=== PATIENT | female | born 1955 | race African-American/Black ===

== ENCOUNTER 2017-11-09 12:30 | Inpatient (IN) | payer SELFPAY ==
[2017-11-09] MEDS ORDERED: NORMAL SALINE 1000 ML 1,000 ML IV ONE (14:38)
[2017-11-09] MEDS ORDERED: METOCLOPRAMIDE HCL INJ/PF 10 MG/2 ML SDV IV ONE (14:39)
--- NOTE | 2017-11-09 14:54 | ER Document Report ---
ED Medical Screen (RME) - General Chief Complaint: Abdominal Pain Stated Complaint: ABDOMINAL PAIN, VOMITING Time Seen by Provider: 11/09/17 14:33 Notes: Patient is a 62-year-old female who presents to the emergency department today with complaints of abdominal pain, vomiting, and generalized weakness for the last 3 days. Patient admits to being an alcoholic, stating she drinks every day. Patient states that she has a history of pancreatitis and her symptoms today feel like her pancreatitis in the past. I have greeted and performed a rapid initial assessment of this patient. A comprehensive ED assessment and evaluation of the patient, analysis of test results, and completion of the medical decision making process will be conducted by additional ED providers. Review of systems: Positive for abdominal pain, vomiting, and generalized weakness. Negative for black or red stool/vomit, abdominal surgeries, or chest pain. Physical Exam: General: Alert, appears well. HEENT: Normocephalic. Atraumatic. PERRLA. Extraocular movements intact. Oropharynx clear. Neck: Supple. Respiratory: No respiratory distress. Abdominal: Left upper quadrant and epigastric abdominal tenderness with palpation. No distension. Extremities: Moves all four extremities. Neurological: Normal cognition. AAOx4. Normal speech. Psychological: Normal affect. Normal Mood. Skin: Warm. Dry. Normal color. TRAVEL OUTSIDE OF THE [place] IN LAST 30 DAYS: No - Related Data Allergies/Adverse Reactions: No Known Allergies Allergy (Verified 11/09/17 12:32) Past Medical History - Social History Chew tobacco use (# tins/day): - 5 Drug Abuse: None - Past Medical History Cardiac Medical History: Reports: Hx Hypertension Renal/ Medical History: Denies: Hx Peritoneal Dialysis Past Surgical History: Reports: Hx Section - x2, Hx Orthopedic Surgery - Right foot sx Physical Exam - Vital signs Vitals: Temp Pulse Resp BP Pulse Ox 99.2 F 133 H 18 153/80 H 99 11/09/17 12:37 11/09/17 12:37 11/09/17 12:37 11/09/17 12:37 11/09/17 12:37 Course - Vital Signs Vital signs: Temp Pulse Resp BP Pulse Ox 99.2 F 133 H 18 153/80 H 99 11/09/17 12:37 11/09/17 12:37 11/09/17 12:37 11/09/17 12:37 11/09/17 12:37 Scribe Documentation - Scribe Written by Mary:: Mary Davis, 11/09/2017 1454 acting as scribe for :: Carrillo
[2017-11-09 15:37] LABS: ABSOLUTE LYMPHOCYTES (AUTO) 0.7 10^3/uL (0.5-4.7); ABSOLUTE MONOCYTES (AUTO) 0.4 10^3/uL (0.1-1.4); ABSOLUTE NEUT (AUTO) 5.7 10^3/uL (1.7-8.2); BASOPHILS % (AUTO) 0.5 % (0-2); EOSINOPHILS % (AUTO) 0.2 % (0-6); HEMATOCRIT 39.7 % (36.0-47.0); HEMOGLOBIN 13.5 g/dL (12.0-15.5); LYMPHOCYTES % (AUTO) 10.6 % (13-45); MEAN CORPUSCULAR HEMOGLOBIN 33.9 pg (27.0-33.4); MEAN CORPUSCULAR HGB CONC 34.1 g/dL (32.0-36.0); MEAN CORPUSCULAR VOLUME 99 fl (80-97); MONOCYTES % (AUTO) 5.9 % (3-13); PLATELET COUNT 211 10^3/uL (150-450); RED CELL DISTRIBUTION WIDTH 15.6 % (11.5-14.0); SEGMENTED NEUTROPHILS % (AUTO) 82.8 % (42-78); TOTAL CELLS COUNTED % (AUTO) 100 %; WHITE BLOOD COUNT 6.8 10^3/uL (4.0-10.5)
[2017-11-09 15:59] LABS: APPEARANCE,URINE SLIGHTLY-CLOUDY; BILIRUBIN,URINE MODERATE (NEGATIVE); COLOR,URINE AMBER; GLUCOSE, URINE NEGATIVE (NEGATIVE); KETONES,URINE 80 mg/dL (NEGATIVE); LEUKOCYTE ESTERASE,URINE NEGATIVE (NEGATIVE); NITRITE,URINE NEGATIVE (NEGATIVE); PROTEIN,URINE 100 mg/dL (NEGATIVE); URINE SPECIFIC GRAVITY 1.024
[2017-11-09 16:03] LABS: ALANINE AMINOTRANSFERASE 23 U/L (9-52); ALBUMIN 4.6 g/dL (3.5-5.0); ALKALINE PHOSPHATASE 133 U/L (38-126); ASPARTATE AMINO TRANSFERASE 51 U/L (14-36); BILIRUBIN,DIRECT 0.9 mg/dL (0.0-0.4); BILIRUBIN,TOTAL 1.7 mg/dL (0.2-1.3); BLOOD UREA NITROGEN 15 mg/dL (7-20); CALCIUM 11.1 mg/dL (8.4-10.2); GLUCOSE 167 mg/dL (75-110); POTASSIUM 3.8 mmol/L (3.6-5.0)
[2017-11-09 16:08] LABS: CARBON DIOXIDE 20 mmol/L (22-30); CHLORIDE 103 mmol/L (98-107); SODIUM 142.5 mmol/L (137-145)
[2017-11-09 16:10] LABS: ANION GAP 19 (5-19); LIPASE 3117.5 U/L (23-300)
--- NOTE | 2017-11-09 16:42 | ER Document Report ---
ED General - General Chief Complaint: Abdominal Pain Stated Complaint: ABDOMINAL PAIN, VOMITING Time Seen by Provider: 11/09/17 14:33 Mode of Arrival: Ambulatory Information source: Patient Notes: This is a 62-year-old female with a history of alcoholic pancreatitis (last episode in 2012) who presents to the emergency room with nausea, vomiting and abdominal pain consistent with prior episode of pancreatitis. Patient does states she regularly drinks alcohol. She denies any past history of gallbladder disease. TRAVEL OUTSIDE OF THE [place] IN LAST 30 DAYS: No - HPI Onset: Last week Onset/Duration: Gradual Quality of pain: Dull Severity: Moderate Pain Level: 4 Associated symptoms: denies: Chest pain, Fever, Shortness of breath Exacerbated by: Movement, Food Relieved by: Denies Similar symptoms previously: Yes Recently seen / treated by doctor: No - Related Data Allergies/Adverse Reactions: No Known Allergies Allergy (Verified 11/09/17 12:32) Past Medical History - General Information source: Patient - Social History Smoking Status: Current Some Day Smoker Cigarette use (# per day): Yes - Half pack per day Chew tobacco use (# tins/day): No - 5 Frequency of alcohol use: None Drug Abuse: None Lives with: Family Family History: None Patient has suicidal ideation: No Patient has homicidal ideation: No - Past Medical History Cardiac Medical History: Reports: Hx Hypertension Renal/ Medical History: Denies: Hx Peritoneal Dialysis Past Surgical History: Reports: Hx Section - x2, Hx Orthopedic Surgery - Right foot sx Review of Systems - Review of Systems Constitutional: denies: Chills, Fever EENT: No symptoms reported Cardiovascular: No symptoms reported Respiratory: No symptoms reported Gastrointestinal: See HPI Genitourinary: No symptoms reported Female Genitourinary: No symptoms reported Musculoskeletal: No symptoms reported Skin: No symptoms reported Hematologic/Lymphatic: No symptoms reported Neurological/Psychological: No symptoms reported Physical Exam - Vital signs Vitals: Temp Pulse Resp BP Pulse Ox 99.2 F 133 H 18 153/80 H 99 11/09/17 12:37 11/09/17 12:37 11/09/17 12:37 11/09/17 12:37 11/09/17 12:37 Notes: Physical exam: GENERAL: 62-year-old female, alert and oriented 3 HEAD: Atraumatic, normocephalic. EYES: Pupils equal round and reactive to light, extraocular movements intact, sclera anicteric, conjunctiva are normal. ENT: TMs normal, nares patent, oropharynx clear without exudates. Moist mucous membranes. NECK: Normal range of motion, supple without obvious mass or JVD. LUNGS: Breath sounds clear to auscultation bilaterally and equal. No wheezes rales or rhonchi. HEART: Regular rate and rhythm without murmurs, rubs or gallops. ABDOMEN: Soft, normoactive bowel sounds. No tenderness to palpation. No guarding, no rebound. No masses appreciated. EXTREMITIES: Normal range of motion, no pitting or edema. No clubbing or cyanosis. NEUROLOGICAL: Cranial nerves II through XII grossly intact. Normal speech, moving all extremities. PSYCH: Normal mood, normal affect. SKIN: Warm, Dry, normal turgor, no rashes or lesions noted. Course - Vital Signs Vital signs: Temp Pulse Resp BP Pulse Ox 99.2 F 133 H 18 153/80 H 99 11/09/17 12:37 11/09/17 12:37 11/09/17 12:37 11/09/17 12:37 11/09/17 12:37 - Laboratory Result Diagrams: 11/09/17 15:20 11/09/17 15:20 Laboratory results interpreted by me: 11/09/17 11/09/17 11/09/17 14:45 15:20 15:20 MCV 99 H MCH 33.9 H RDW 15.6 H Seg Neutrophils % 82.8 H Lymphocytes % 10.6 L Carbon Dioxide 20 L Creatinine 0.50 L Glucose 167 H Calcium 11.1 H Total Bilirubin 1.7 H Direct Bilirubin 0.9 H AST 51 H Alkaline Phosphatase 133 H Lipase 3117.5 H Urine Protein 100 H Urine Ketones 80 H Urine Bilirubin MODERATE H Urine Urobilinogen 4.0 H - Diagnostic Test Radiology reviewed: Image reviewed, Reports reviewed - The the abdomen shows no acute intra-abdominal process Discharge - Discharge Clinical Impression: Alcoholic pancreatitis Condition: Stable Disposition: ADMITTED INPATIENT Admitting Provider: Hospitalist - Dr Mark/[facility] Unit Admitted: Telemetry
--- NOTE | 2017-11-09 17:03 | RADIOLOGY REPORT (SQ) ---
EXAM DESCRIPTION: CT ABD/PELVIS WITH IV ONLY COMPLETED DATE/TIME: 11/09/2017 4:42 pm REASON FOR STUDY: abd pain COMPARISON: None. TECHNIQUE: CT scan of the abdomen and pelvis performed using helical scanning technique with dynamic intravenous contrast injection. No oral contrast. Images reviewed with lung, soft tissue, and bone windows. Reconstructed coronal and sagittal MPR images reviewed. Delayed images for evaluation of the urinary system also acquired. All images stored on PACS. All CT scanners at this facility use dose modulation, iterative reconstruction, and/or weight based d osing when appropriate to reduce radiation dose to as low as reasonably achievable (ALARA). [facility]: Dose Right [facility]: CareDose [facility]: Dose Right [facility]: Teradose 4D [facility]: PerSay CONTRAST TYPE AND DOSE: contrast/concentration: Isovue 370.00 mg/ml; Total Contrast Delivered: 74.0 ml; Total Saline Delivered: 30.0 ml 74 mL Isovue 370- low osmolar. RENAL FUNCTION: Creatinine 0.5 RADIATION DOSE: CT Rad equipment meets quality standard of care and radiation dose reduction techniq ues were employed. CTDIvol: 4.8 mGy. DLP: 417 mGy-cm.. LIMITATIONS: None. FINDINGS: LOWER CHEST: No significant findings. No nodules or infiltrates. LIVER: Scattered hepatic cysts. Largest 2.7 Cm. No solid masses. No ductal dilatation. SPLEEN: Normal size. No focal lesions. PANCREAS: No masses. No significant calcifications. No adjacent inflammation or peripancreatic fluid collections. Pancreatic duct not dilated. GALLBLADDER: No identified stones by CT criteria. No inflammatory changes to suggest cholecystitis. ADRENAL GLANDS: No significant masses or asymmetry. RIGHT KIDNEY AND URETER: No solid masses. No significant calcifications. No hydronephrosis or hyd roureter. LEFT KIDNEY AND URETER: No solid masses. No significant calcifications. No hydronephrosis or hydr oureter. AORTA AND VESSELS: No aneurysm. No dissection. Renal arteries, SMA, celiac without stenosis. RETROPERITONEUM: No retroperitoneal adenopathy, hemorrhage or masses. BOWEL AND PERITONEAL CAVITY: No masses or inflammatory changes. No free fluid or peritoneal masses. Moderate gaseous distention of small bowel without air-fluid levels. APPENDIX: Normal. PELVIS: Large 8 cm fundal uterine fibroid ABDOMINAL WALL: No masses. No hernias. BONES: No significant or acute findings. OTHER: No other significant finding. IMPRESSION: Nonspecific small bowel ileus. No acute or significant pathology to explain the patient 's clinical symptoms. Incidental findings of hepatic cyst and large uterine fundal fibroid. TECHNICAL DOCUMENTATION: JOB ID: [id number] Quality ID # [id number]: Final reports with documentation of one or more dose reduction techniques (e.g., Au tomated exposure control, adjustment of the mA and/or kV according to patient size, use of iterative reconstruction technique) 2010 [email or web address]- All Rights Reserved Reading location - IP/workstation name: [email or web address]
[2017-11-09] MEDS ORDERED: ONDANSETRON HCL INJ/PF 4 MG/2 ML SDV IV PRN (18:00)
[2017-11-09] MEDS ORDERED: FENTANYL CITRATE INJ/PF 100 MCG/2 ML AMPUL IV PRN (18:11)
[2017-11-09] MEDS ORDERED: LORAZEPAM INJ 2 MG/1 ML VIAL IV PRN (19:07)
--- NOTE | 2017-11-09 19:07 | PDOC H&P ---
History of Present Illness Admission Date/PCP: 11/09/17 18:27 Patient complains of: Abdominal pain and nausea History of Present Illness: GWEN BELCHER is a 62 year old female with past medical history of essential hypertension, vitamin B12 deficiency and daily alcohol use; she presents to [facility] emergency department this evening complaining of epigastric pain and nausea. She has had a history of alcohol induced pancreatitis, last in 2012. She states she began having mild to moderate epigastric pain yesterday afternoon. It was associated with some nausea, but no vomiting. The pain is increased in intensity as today's going on. Diarrhea or change in bowel habits. She denies any fevers associated with the pain. Presently is pain-free and resting comfortably. She denies any nausea at the present time. Past Medical History Cardiac Medical History: Reports: Hypertension Pulmonary Medical History: Reports: None EENT Medical History: Reports: None Neurological Medical History: Reports: None Endocrine Medical History: Reports: None Renal/ Medical History: Reports: None Malignancy Medical History: Reports: None GI Medical History: Reports: None Skin Medical History: Reports: None Psychiatric Medical History: Reports: Alcohol Dependency, Tobacco Dependency Traumatic Medical History: Reports: None Hematology: Reports: None Infectious Medical History: Reports: None Past Surgical History Past Surgical History: Reports: Section - x2, Orthopedic Surgery - Right foot sx Social History Information Source: Patient Lives with: Family Smoking Status: Current Some Day Smoker Number of Years Smokin Last Time Smoked: 11/08/17 Frequency of Alcohol Use: Heavy - She drinks between 2-3 vodkas and cardenas per day. Last Alcohol Use: 11/08/17 Hx Recreational Drug Use: No - Advance Directive Resuscitation Status: Full Code Surrogate healthcare decision maker:: Family History Family History: Hypertension Parental Family History Reviewed: Yes Children Family History Reviewed: Yes Sibling(s) Family History Reviewed.: Yes Medication/Allergy Home Medications: Cyanocobalamin (Vitamin B-12) [Vitamin B12] 1 tab PO DAILY 11/09/17 Metoprolol Tartrate 1 tab PO BID 11/09/17 Allergies/Adverse Reactions: No Known Allergies Allergy (Verified 11/09/17 12:32) Review of Systems Constitutional: PRESENT: chills Eyes: ABSENT: visual disturbances Ears: ABSENT: hearing changes Respiratory: PRESENT: as per HPI Gastrointestinal: PRESENT: abdominal pain, heartburn, nausea Genitourinary: ABSENT: dysuria, hematuria Musculoskeletal: ABSENT: joint swelling Neurological: ABSENT: abnormal gait, abnormal speech, confusion, dizziness, focal weakness, syncope Psychiatric: ABSENT: anxiety, depression, homidical ideation, suicidal ideation Endocrine: ABSENT: cold intolerance, heat intolerance, polydipsia, polyuria Hematologic/Lymphatic: ABSENT: easy bleeding, easy bruising Physical Exam Vital Signs: Temp Pulse Resp BP Pulse Ox 99.2 F 133 H 18 153/80 H 99 11/09/17 12:37 11/09/17 12:37 11/09/17 12:37 11/09/17 12:37 11/09/17 12:37 General appearance: PRESENT: no acute distress, thin, well-developed Head exam: PRESENT: atraumatic, normocephalic Eye exam: PRESENT: conjunctiva pink, EOMI, PERRLA. ABSENT: scleral icterus Ear exam: PRESENT: normal external ear exam Mouth exam: PRESENT: moist, tongue midline Neck exam: ABSENT: carotid bruit, JVD, lymphadenopathy, thyromegaly Respiratory exam: PRESENT: clear to auscultation maribel. ABSENT: rales, rhonchi, wheezes Cardiovascular exam: PRESENT: RRR. ABSENT: diastolic murmur, rubs, systolic murmur Pulses: PRESENT: normal dorsalis pedis pul Vascular exam: PRESENT: normal capillary refill GI/Abdominal exam: PRESENT: soft Rectal exam: PRESENT: deferred Extremities exam: PRESENT: full ROM. ABSENT: calf tenderness, clubbing, pedal edema Neurological exam: PRESENT: alert, awake, oriented to person, oriented to place , oriented to time, oriented to situation, CN II-XII grossly intact. ABSENT: motor sensory deficit Psychiatric exam: PRESENT: appropriate affect, normal mood. ABSENT: homicidal ideation, suicidal ideation Skin exam: PRESENT: dry, intact, warm. ABSENT: cyanosis, rash Results Impressions: Abdomen/Pelvis CT 11/09/17 14:37 IMPRESSION: Nonspecific small bowel ileus. No acute or significant pathology to explain the patient's clinical symptoms. Incidental findings of hepatic cyst and large uterine fundal fibroid. Assessment & Plan - Diagnosis (1) Alcoholic pancreatitis Qualifiers: Chronicity: acute Is this a current diagnosis for this admission?: Yes Plan: Lipase is 3100. CT abdomen pelvis is no abnormality. Will make n.p.o. except for ice chips and IV hydrate. She has had recurrent alcoholic pancreatitis. LAst in 2012 (2) Essential hypertension Is this a current diagnosis for this admission?: Yes Plan: Normotensive (3) Alcohol abuse Is this a current diagnosis for this admission?: Yes Plan: Valium 2 mg q6h, Ativan prn. Start thiamine, folic acid when she can take p.o.. She has never had DTs. States she does occasionally get a little tremulous. (4) Tobacco abuse Is this a current diagnosis for this admission?: Yes Plan: She smokes 5 cigarillos every 2 days. Counseled has no plans to stop (5) Protein-calorie malnutrition, severe Is this a current diagnosis for this admission?: Yes Plan: BMI is 15.1 She is npo now. She states she has always been thin - Time Time Spent: 50 to 70 Minutes Critical Time spent with patient: 25-34 minutes Smoking Cessation Education: 3 to 10 minutes Medications reviewed and adjusted accordingly: Yes Anticipated discharge: Home
[2017-11-09] MEDS ORDERED: ENOXAPARIN SODIUM INJ 40 MG/0.4 ML DISP.SYRIN SUBCUT ONE (20:00)
[2017-11-09] MEDS: NORMAL SALINE 1000 ML 1,000 ML IV PRN (20:20)
[2017-11-09] MEDS: FAMOTIDINE INJ/PF 20 MG/2 ML SDV IV SCH (22:47)
[2017-11-09] MEDS: METOPROLOL TARTRATE 50 MG TABLET PO SCH (22:47)
--- NOTE | 2017-11-09 22:54 | EKG REPORT ---
SEVERITY:- ABNORMAL ECG - SINUS TACHYCARDIA PROBABLE LEFT ATRIAL ABNORMALITY LVH WITH SECONDARY REPOLARIZATION ABNORMALITY : Confirmed by: Liv Vale 09-Nov-2017 22:53:36
[2017-11-09] MEDS: DIAZEPAM 2 MG TABLET PO SCH (23:48)
[2017-11-10] MEDS: DIAZEPAM 2 MG TABLET PO SCH ×3 (06:19→19:40)
[2017-11-10] MEDS ORDERED: FENTANYL CITRATE INJ/PF 100 MCG/2 ML AMPUL IV PRN (06:30)
[2017-11-10 06:49] LABS: ABSOLUTE EOSINOPHILS # (AUTO) 0.1 10^3/uL (0.0-0.6); ABSOLUTE MONOCYTES (AUTO) 0.5 10^3/uL (0.1-1.4); ABSOLUTE NEUT (AUTO) 4.1 10^3/uL (1.7-8.2); BASOPHILS % (AUTO) 0.3 % (0-2); EOSINOPHILS % (AUTO) 1.1 % (0-6); HEMATOCRIT 31.2 % (36.0-47.0); MEAN CORPUSCULAR HEMOGLOBIN 34.2 pg (27.0-33.4); MEAN CORPUSCULAR HGB CONC 34.3 g/dL (32.0-36.0); MEAN CORPUSCULAR VOLUME 100 fl (80-97); MONOCYTES % (AUTO) 8.8 % (3-13); PLATELET COUNT 165 10^3/uL (150-450); RED BLOOD COUNT 3.14 10^6/uL (3.72-5.28); RED CELL DISTRIBUTION WIDTH 15.6 % (11.5-14.0); SEGMENTED NEUTROPHILS % (AUTO) 72.8 % (42-78); TOTAL CELLS COUNTED % (AUTO) 100 %; WHITE BLOOD COUNT 5.7 10^3/uL (4.0-10.5)
[2017-11-10 06:51] LABS: ALANINE AMINOTRANSFERASE 19 U/L (9-52); ALKALINE PHOSPHATASE 91 U/L (38-126); ANION GAP 9 (5-19); ASPARTATE AMINO TRANSFERASE 43 U/L (14-36); BILIRUBIN,DIRECT 0.6 mg/dL (0.0-0.4); BILIRUBIN,TOTAL 1.1 mg/dL (0.2-1.3); BLOOD UREA NITROGEN 7 mg/dL (7-20); CALCIUM 9.1 mg/dL (8.4-10.2); CARBON DIOXIDE 21 mmol/L (22-30); CHLORIDE 110 mmol/L (98-107); CHOLESTEROL 176.59 mg/dL (0-200); GLUCOSE 127 mg/dL (75-110); LIPASE 1820.8 U/L (23-300); POTASSIUM 3.2 mmol/L (3.6-5.0); SODIUM 140.1 mmol/L (137-145); TOTAL PROTEIN 5.6 g/dL (6.3-8.2); TRIGLYCERIDES 124 mg/dL (<150)
[2017-11-10 06:52] LABS: HEMOGLOBIN 10.7 g/dL (12.0-15.5)
[2017-11-10 07:01] LABS: DIRECT LDL 116 mg/dL (<100)
[2017-11-10] MEDS: NORMAL SALINE 1000 ML 1,000 ML IV PRN ×2 (08:33→15:15)
[2017-11-10] MEDS ORDERED: CYANOCOBALAMIN PO SCH (10:00)
[2017-11-10] MEDS: FAMOTIDINE INJ/PF 20 MG/2 ML SDV IV SCH ×2 (10:19→22:02)
[2017-11-10] MEDS: CYANOCOBALAMIN (VITAMIN B-12) 1,000 MCG TABLET PO SCH (10:20)
[2017-11-10] MEDS: METOPROLOL TARTRATE 50 MG TABLET PO SCH ×2 (10:20→22:02)
[2017-11-10] MEDS: ENOXAPARIN SODIUM INJ 40 MG/0.4 ML DISP.SYRIN SUBCUT SCH (10:20)
[2017-11-11] MEDS: DIAZEPAM 2 MG TABLET PO SCH ×5 (00:58→23:11)
--- NOTE | 2017-11-11 10:19 | Physician Advisory Note ---
Physician Advisor ProgressNote .: [facility] I have reviewed the medical record for this patient. Physician Advisor Statement: Please consider documenting in each note, if you agree: 1. "ileus, likely due to " (pancreatitis?) - per CT 2. "EtOH abuse & dependence" 3. Findings supporting dx severe malnutrition - Has Cr down to 0.39 after rehydration, alcoholism x many yrs, wt 40.4-43.8 kg (BMI 17.3 - 18.9), [?wt loss, ?appetite loss, ] [if possible, give specifics on intake, wt loss, loss of SQ fat & muscle mass, diminished hand interactive art director strength, & clinical importance such as (A) nutritional assessment ordered, (B) modified diet or supplements ordered, (C) additional labs ordered, (D) prolonged wound healing time, (E) delayed infxn clearance] - - - Auditors are strict about the dx of malnutrition - needs to be explicitly spelled out. Thanks! CK
[2017-11-11] MEDS: NORMAL SALINE 1000 ML 1,000 ML IV PRN ×3 (11:34→18:28)
[2017-11-11] MEDS: METOPROLOL TARTRATE 50 MG TABLET PO SCH ×2 (11:46→21:38)
[2017-11-11] MEDS: CYANOCOBALAMIN (VITAMIN B-12) 1,000 MCG TABLET PO SCH (11:46)
[2017-11-11] MEDS: FAMOTIDINE INJ/PF 20 MG/2 ML SDV IV SCH ×2 (11:49→21:38)
[2017-11-11] MEDS: ENOXAPARIN SODIUM INJ 40 MG/0.4 ML DISP.SYRIN SUBCUT SCH (11:49)
--- NOTE | 2017-11-11 14:41 | PDOC PROGRESS REPORT ---
Subjective Progress Note for:: 11/11/17 Subjective:: This is 62 years old black female patient admitted for epigastric pain secondary to alcohol induced pancreatitis. Currently her epigastric pain is subsiding and was advised that her diet to full liquid. Reason For Visit: ALCOHOLIC PANCREATITIS Physical Exam Vital Signs: Temp Pulse Resp BP Pulse Ox 98.6 F 98 18 131/83 H 100 11/11/17 11:00 11/11/17 11:00 11/11/17 11:00 11/11/17 11:00 11/11/17 11:00 Intake & Output 11/10/17 11/11/17 11/12/17 06:59 06:59 06:59 Intake Total 1980 946 Output Total 650 4500 Balance 1330 -3554 Weight 40.4 kg 43.8 kg General appearance: PRESENT: no acute distress Head exam: PRESENT: atraumatic, normocephalic Eye exam: PRESENT: conjunctiva pink, EOMI, PERRLA. ABSENT: scleral icterus Ear exam: PRESENT: normal external ear exam Mouth exam: PRESENT: moist, tongue midline Neck exam: ABSENT: carotid bruit, JVD, lymphadenopathy, thyromegaly Respiratory exam: PRESENT: clear to auscultation maribel. ABSENT: rales, rhonchi, wheezes Cardiovascular exam: PRESENT: RRR. ABSENT: diastolic murmur, rubs, systolic murmur Pulses: PRESENT: normal dorsalis pedis pul Vascular exam: PRESENT: normal capillary refill GI/Abdominal exam: PRESENT: normal bowel sounds, soft. ABSENT: distended, guarding, mass, organolmegaly, rebound, tenderness Rectal exam: PRESENT: deferred Extremities exam: PRESENT: full ROM. ABSENT: calf tenderness, clubbing, pedal edema Neurological exam: PRESENT: alert, awake, oriented to person, oriented to place , oriented to time, oriented to situation, CN II-XII grossly intact. ABSENT: motor sensory deficit Psychiatric exam: PRESENT: appropriate affect, normal mood. ABSENT: homicidal ideation, suicidal ideation Skin exam: PRESENT: dry, intact, warm. ABSENT: cyanosis, rash Results Laboratory Results: 11/10/17 06:04 11/10/17 06:04 11/11/17 04:42 Lipase 1031.3 H Impressions: Abdomen/Pelvis CT 11/09/17 14:37 IMPRESSION: Nonspecific small bowel ileus. No acute or significant pathology to explain the patient's clinical symptoms. Incidental findings of hepatic cyst and large uterine fundal fibroid. Assessment & Plan - Diagnosis (1) Alcohol abuse Is this a current diagnosis for this admission?: Yes Plan: Currently patient did not show any signs of alcohol withdrawal. Continue current regimen. (2) Alcoholic pancreatitis Qualifiers: Chronicity: acute Is this a current diagnosis for this admission?: Yes Plan: Acute on chronic alcohol induced pancreatitis. Her lipase is trending down from 3117 -1031 (3) Essential hypertension Is this a current diagnosis for this admission?: Yes Plan: Controlled. (4) Protein-calorie malnutrition, severe Is this a current diagnosis for this admission?: Yes Plan: Patient thinks she has moderate malnutrition evidenced by wasted muscles and fragility. (5) Tobacco abuse Is this a current diagnosis for this admission?: Yes Plan: Patient advised to quit smoking. - Time Time Spent with patient: 25-34 minutes
[2017-11-12] MEDS: DIAZEPAM 2 MG TABLET PO SCH ×4 (05:56→23:05)
[2017-11-12] MEDS: CYANOCOBALAMIN (VITAMIN B-12) 1,000 MCG TABLET PO SCH (10:24)
[2017-11-12] MEDS: METOPROLOL TARTRATE 50 MG TABLET PO SCH ×2 (10:24→23:04)
[2017-11-12] MEDS: FAMOTIDINE INJ/PF 20 MG/2 ML SDV IV SCH ×2 (10:24→23:03)
[2017-11-12] MEDS: ENOXAPARIN SODIUM INJ 40 MG/0.4 ML DISP.SYRIN SUBCUT SCH (10:25)
--- NOTE | 2017-11-12 14:26 | PDOC PROGRESS REPORT ---
Subjective Progress Note for:: 11/12/17 Subjective:: I seen and examined the patient at bedside. She is awake alert oriented she is not in pain or any form of distress. I transitioned her from full liquid to solid diet and she tolerates well. Her lipase is trending down from 3000-880. If her lipase is trending further down, she will be a candidate for discharge tomorrow Reason For Visit: ALCOHOLIC PANCREATITIS Physical Exam Vital Signs: Temp Pulse Resp BP Pulse Ox 98.6 F 88 15 155/89 H 100 11/12/17 11:58 11/12/17 11:58 11/12/17 11:58 11/12/17 11:58 11/12/17 11:58 Intake & Output 11/11/17 11/12/17 11/13/17 06:59 06:59 06:59 Intake Total 946 2456 Output Total 4500 1900 Balance -3554 556 Weight 43.8 kg 43.6 kg General appearance: PRESENT: no acute distress, well-developed, well-nourished Head exam: PRESENT: atraumatic, normocephalic Eye exam: PRESENT: conjunctiva pink, EOMI, PERRLA. ABSENT: scleral icterus Ear exam: PRESENT: normal external ear exam Mouth exam: PRESENT: moist, tongue midline Neck exam: ABSENT: carotid bruit, JVD, lymphadenopathy, thyromegaly Respiratory exam: PRESENT: clear to auscultation maribel. ABSENT: rales, rhonchi, wheezes Cardiovascular exam: PRESENT: RRR. ABSENT: diastolic murmur, rubs, systolic murmur Pulses: PRESENT: normal dorsalis pedis pul Vascular exam: PRESENT: normal capillary refill GI/Abdominal exam: PRESENT: normal bowel sounds, soft. ABSENT: distended, guarding, mass, organolmegaly, rebound, tenderness Rectal exam: PRESENT: deferred Extremities exam: PRESENT: full ROM. ABSENT: calf tenderness, clubbing, pedal edema Neurological exam: PRESENT: alert, awake, oriented to person, oriented to place , oriented to time, oriented to situation, CN II-XII grossly intact. ABSENT: motor sensory deficit Psychiatric exam: PRESENT: appropriate affect, normal mood. ABSENT: homicidal ideation, suicidal ideation Skin exam: PRESENT: dry, intact, warm. ABSENT: cyanosis, rash Results Laboratory Results: 11/10/17 06:04 11/10/17 06:04 11/12/17 06:02 Lipase 880.4 H Impressions: Abdomen/Pelvis CT 11/09/17 14:37 IMPRESSION: Nonspecific small bowel ileus. No acute or significant pathology to explain the patient's clinical symptoms. Incidental findings of hepatic cyst and large uterine fundal fibroid. Assessment & Plan - Diagnosis (1) Alcohol abuse Is this a current diagnosis for this admission?: Yes Plan: Currently patient did not show any signs of alcohol withdrawal. Continue current regimen. (2) Alcoholic pancreatitis Qualifiers: Chronicity: acute Is this a current diagnosis for this admission?: Yes Plan: Acute on chronic alcohol induced pancreatitis. Her lipase is trending down from 3117 -1031 (3) Essential hypertension Is this a current diagnosis for this admission?: Yes Plan: Controlled. (4) Protein-calorie malnutrition, severe Is this a current diagnosis for this admission?: Yes Plan: Moderate malnutrition evidenced by wastage upper and lower extremities. (5) Tobacco abuse Is this a current diagnosis for this admission?: Yes Plan: Patient advised to quit smoking. - Time Time Spent with patient: 25-34 minutes
[2017-11-13] MEDS: DIAZEPAM 2 MG TABLET PO SCH (06:47)
[2017-11-13 08:18] VITALS: BP 110/71
[2017-11-13] MEDS: ENOXAPARIN SODIUM INJ 40 MG/0.4 ML DISP.SYRIN SUBCUT SCH (09:08)
[2017-11-13] MEDS: FAMOTIDINE INJ/PF 20 MG/2 ML SDV IV SCH (09:08)
[2017-11-13] MEDS: CYANOCOBALAMIN (VITAMIN B-12) 1,000 MCG TABLET PO SCH (09:11)
[2017-11-13] MEDS: METOPROLOL TARTRATE 50 MG TABLET PO SCH (09:11)
--- NOTE | 2017-11-13 09:40 | PDOC DISCHARGE SUMMARY ---
General - Admit/Disc Date/PCP Admission Date/Primary Care Provider: 11/09/17 18:27 Discharge Date: 11/13/17 - Discharge Diagnosis (1) Alcohol abuse Is this a current diagnosis for this admission?: Yes (2) Alcoholic pancreatitis Is this a current diagnosis for this admission?: Yes (3) Essential hypertension Is this a current diagnosis for this admission?: Yes (4) Protein-calorie malnutrition, severe Is this a current diagnosis for this admission?: Yes (5) Tobacco abuse Is this a current diagnosis for this admission?: Yes - Additional Information Resuscitation Status: Full Code Prescriptions: Metoprolol Tartrate 1 tab PO BID #60 tablet Home Medications: Cyanocobalamin (Vitamin B-12) [Vitamin B12] 1 tab PO DAILY 11/09/17 Metoprolol Tartrate 1 tab PO BID #60 tablet 11/13/17 History of Present Illness History of Present Illness: GWEN BELCHER is a 62 year old female with past medical history of essential hypertension, vitamin B12 deficiency and daily alcohol use; she presents to [facility] emergency department this evening complaining of epigastric pain and nausea. She has had a history of alcohol induced pancreatitis, last in 2012. She states she began having mild to moderate epigastric pain yesterday afternoon. It was associated with some nausea, but no vomiting. The pain is increased in intensity as today's going on. Diarrhea or change in bowel habits. She denies any fevers associated with the pain. Presently is pain-free and resting comfortably. She denies any nausea at the present time. Hospital Course Hospital Course: This is 62 years old black female patient admitted for abdominal pain and nausea. Her initial blood work shows markedly elevated lipase which is 3000. With impression of acute on chronic pancreatitis patient has been managed with nothing by mouth for bowel rest, aggressive hydration and pain control. Gradually her lipase level improved from 3000-800. Patient is able to eat and tolerate well. She does not have any nausea or vomiting. Today on the day of discharge on physical examination I found the patient resting in bed comfortably she is not in pain or any form of acute cardiorespiratory distress. Patient advised to remain sober and compliant with her medication and her follow-up. Physical Exam Vital Signs: Temp Pulse Resp BP Pulse Ox 98.5 F 96 13 110/71 100 11/13/17 08:15 11/13/17 08:15 11/13/17 08:15 11/13/17 08:15 11/13/17 08:15 Intake & Output 11/12/17 11/13/17 11/14/17 06:59 06:59 06:59 Intake Total 2456 1826 Output Total 1900 4 Balance 556 1822 Weight 43.6 kg 42.7 kg General appearance: PRESENT: no acute distress, other - Malnourished Head exam: PRESENT: atraumatic, normocephalic Eye exam: PRESENT: conjunctiva pink, EOMI, PERRLA. ABSENT: scleral icterus Ear exam: PRESENT: normal external ear exam Mouth exam: PRESENT: moist, tongue midline Neck exam: ABSENT: carotid bruit, JVD, lymphadenopathy, thyromegaly Respiratory exam: PRESENT: clear to auscultation maribel. ABSENT: rales, rhonchi, wheezes Cardiovascular exam: PRESENT: RRR. ABSENT: diastolic murmur, rubs, systolic murmur Pulses: PRESENT: normal dorsalis pedis pul Vascular exam: PRESENT: normal capillary refill GI/Abdominal exam: PRESENT: normal bowel sounds, soft. ABSENT: distended, guarding, mass, organolmegaly, rebound, tenderness Rectal exam: PRESENT: deferred Extremities exam: PRESENT: full ROM. ABSENT: calf tenderness, clubbing, pedal edema Neurological exam: PRESENT: alert, awake, oriented to person, oriented to place , oriented to time, oriented to situation, CN II-XII grossly intact. ABSENT: motor sensory deficit Psychiatric exam: PRESENT: appropriate affect, normal mood. ABSENT: homicidal ideation, suicidal ideation Skin exam: PRESENT: dry, intact, warm. ABSENT: cyanosis, rash Results Laboratory Results: 11/10/17 06:04 11/10/17 06:04 11/13/17 05:33 Lipase 837.8 H Impressions: Abdomen/Pelvis CT 11/09/17 14:37 IMPRESSION: Nonspecific small bowel ileus. No acute or significant pathology to explain the patient's clinical symptoms. Incidental findings of hepatic cyst and large uterine fundal fibroid. Qualifiers - * PATIENT BEING DISCHARGED WITH ANY OF THE FOLLOWING DIAGNOSIS: No
--- NOTE | 2017-11-19 18:04 | PDOC PROGRESS REPORT ---
Subjective Progress Note for:: 11/10/17 Subjective:: No new nursing issues patient admits reduced pain, nausea and requesting p.o. trial, Reason For Visit: ALCOHOLIC PANCREATITIS Physical Exam Vital Signs: Temp Pulse Resp BP Pulse Ox 98.5 F 96 13 110/71 100 11/13/17 08:15 11/13/17 08:15 11/13/17 08:15 11/13/17 08:15 11/13/17 08:15 General appearance: PRESENT: no acute distress, well-developed, well-nourished Head exam: PRESENT: atraumatic, normocephalic Eye exam: PRESENT: conjunctiva pink, EOMI, PERRLA. ABSENT: scleral icterus Ear exam: PRESENT: normal external ear exam Mouth exam: PRESENT: moist, tongue midline Neck exam: ABSENT: carotid bruit, JVD, lymphadenopathy, thyromegaly Respiratory exam: PRESENT: clear to auscultation maribel. ABSENT: rales, rhonchi, wheezes Cardiovascular exam: PRESENT: RRR. ABSENT: diastolic murmur, rubs, systolic murmur Pulses: PRESENT: normal dorsalis pedis pul Vascular exam: PRESENT: normal capillary refill GI/Abdominal exam: PRESENT: normal bowel sounds, soft. ABSENT: distended, guarding, mass, organolmegaly, rebound, tenderness Rectal exam: PRESENT: deferred Extremities exam: PRESENT: full ROM. ABSENT: calf tenderness, clubbing, pedal edema Neurological exam: PRESENT: alert, awake, oriented to person, oriented to place , oriented to time, oriented to situation, CN II-XII grossly intact. ABSENT: motor sensory deficit Psychiatric exam: PRESENT: appropriate affect, normal mood. ABSENT: homicidal ideation, suicidal ideation Skin exam: PRESENT: dry, intact, warm. ABSENT: cyanosis, rash Results Laboratory Results: 11/10/17 06:04 11/10/17 06:04 Impressions: Abdomen/Pelvis CT 11/09/17 14:37 IMPRESSION: Nonspecific small bowel ileus. No acute or significant pathology to explain the patient's clinical symptoms. Incidental findings of hepatic cyst and large uterine fundal fibroid. Assessment & Plan - Diagnosis (1) Alcohol abuse Is this a current diagnosis for this admission?: Yes Plan: Thiamine, folate, as needed Ativan and education (2) Alcoholic pancreatitis Qualifiers: Chronicity: acute Is this a current diagnosis for this admission?: Yes Plan: No evidence for gallbladder involvement, symptomatic management, bowel rest, IV fluid challenge, follow-up chemistry, p.o. clear liquid trial pending (3) Tobacco abuse Is this a current diagnosis for this admission?: Yes Plan: Tobacco Dependence patient received tobacco cessation counseling and offered nicotine replacement options
== END 2017-11-13 10:15 | disposition home or self-care (01) | DRG 438 ==
LOC: ER 12:30 → EH 18:27 → 4N 20:50
PROVIDERS: ADMIT Internal Medicine; ATTEND Internal Medicine
DX: K85.20 Alcohol induced acute pancreatitis without necrosis or infection (principal); E43 Unspecified severe protein-calorie malnutrition; Z68.1 Body mass index [BMI] 19.9 or less, adult; I10 Essential (primary) hypertension; K86.0 Alcohol-induced chronic pancreatitis; F10.20 Alcohol dependence, uncomplicated; F17.210 Nicotine dependence, cigarettes, uncomplicated; Y90.9 Presence of alcohol in blood, level not specified; Z71.6 Tobacco abuse counseling
CPT/HCPCS: 36415; 74177; 80053; 80061; 81001; 83690; 83735; 85025; 93005; 93010; 96361; 96374; 99285; J1650; J2765; J3490; J7030; S0028

== ENCOUNTER → 2018-08-25 | Day surgery (SDC) | payer SELFPAY ==
[~2018-08-25] MED LIST: LIDOCAINE 1%/EPINEPHRINE INJ 20 ML VIAL ONE; LIDOCAINE 2% INJ (20 MG/ML) 20 ML MDV ONE
== END ==
LOC: RAD 09:41
PROVIDERS: ATTEND Surgery
DX: R92.0 Mammographic microcalcification found on diagnostic imaging of breast (principal); N60.11 Diffuse cystic mastopathy of right breast
CPT/HCPCS: 88305 ×2; 88342; 19081; 19082; 77065; J3490 ×2